=== PATIENT | male | born 1955 | race Caucasian/White ===

== ENCOUNTER → 2016-12-22 | Outpatient (CLI) | payer BC ==
[~2016-12-22] MED LIST: CHOL20007 PO; DICY10CA12 PO; IRON PO
--- NOTE | 2016-12-22 15:15 | DIAGNOSTIC IMAGING REPORT ---
RIGHT SHOULDER MIN 2 VIEWS CLINICAL HISTORY: Right shoulder pain. Rotator cuff tear. COMPARISON: None FINDINGS: Alignment of the right shoulder is in anatomic. There is no fracture or suspicious lesion. There is moderate AC joint arthrosis. There is mild glenohumeral joint arthrosis. IMPRESSION: 1. No acute fracture or dislocation of the right shoulder. 2. Moderate osteoarthritis of the right acromioclavicular joint and mild osteoarthritis of the right glenohumeral joint. Electronically signed by: Noah Phillips M.D. 12/22/2016 3:13 PM Dictated Date/Time: 12/22/2016 3:12 PM
== END | disposition home or self-care (01) ==
LOC: C.RDSM 14:47
PROVIDERS: ATTEND Physician Assistant
DX: M75.100 Unspecified rotator cuff tear or rupture of unspecified shoulder, not specified as traumatic (principal); M19.011 Primary osteoarthritis, right shoulder

== ENCOUNTER → 2017-01-16 | Day surgery (SDC) | payer BC ==
[2016-12-28 09:35] VITALS: Ht 165.1 cm; Wt 74.1 kg
[2017-01-08 15:34] LABS: BASO % 0.5 %; BASO ABS # 0.03 K/uL (0-0.2); COMPLETE YES; EOS % 1.4 %; HEMATOCRIT 43.2 % (42-52); IG% 0.5 %; LYMPH % 25.4 %; LYMPH ABS # 1.59 K/uL (1.2-3.4); MEAN CELL VOLUME 91.9 fL (80-100); MEAN CORPUSCULAR HEMOGLOBIN 30.4 pg (25-34); MEAN CORPUSCULAR HGB CONC 33.1 g/dl (32-36); MEAN PLATELET VOLUME 10.4 fL (7.4-10.4); NEUT % 65.2 %; PLATELET COUNT 271 K/uL (130-400); WHITE BLOOD COUNT 6.27 K/uL (4.8-10.8)
[2017-01-08 15:57] LABS: CALCIUM 9.3 mg/dl (8.5-10.1); CREATININE 0.82 mg/dl (0.60-1.40); POTASSIUM 4.1 mmol/L (3.5-5.1)
[~2017-01-16] VITALS: Ht 165.1 cm; Wt 74.1 kg
[~2017-01-16] MED LIST changes: +ATROPINE SULFATE 0.1 MG/ML 5ML SYR IV PRN; +BUPIVACAINE/EPINEPHRINE 0.5% MPF 1:200,000 30 ML VIAL ONE; +DEXAMETHASONE SOD INJ 4 MG/ML VIAL ONE; +EpHEDrine SULFATE 50MG/5ML SYR ONE; +EpHEDrine SULFATE INJ 50 MG/ML AMP IV PRN; +EpINEphrine INJ 1MG/ML AMP 1 MG/ML AMP ONE; +FENTANYL CITRATE INJ 50 MCG/1 ML 2 ML VIAL IV PRN; +FENTANYL CITRATE INJ 50 MCG/1 ML 2 ML VIAL ONE; +HYDROmorphone INJ 1 MG/ML SYR IV PRN; +LACTATED RINGER'S 1000ML 1,000 ML IV SCH; +LIDOCAINE HCL 2% 2 ML VIAL (20MG/ML) ONE; +MIDAZOLAM HCL 1 MG/ML 2ML VIAL ONE; +ONDANSETRON INJ 2 MG/ML 2 ML VIAL IV PRN; +ONDANSETRON INJ 2 MG/ML 2 ML VIAL ONE; +OXYCODONE/ACETAMINOPHEN 5-325 TAB PO PRN; +PROPOFOL IV EMULSION 10 MG/ML 20 ML VIAL IV ONE; +ROPIVACAINE 0.5% 5 MG/ML 30 ML VIAL ONE; +SODIUM CHLORIDE 0.9% 1000ML 1,000 ML IV SCH
[2017-01-16] MEDS: CLINDAMYCIN PHOS 150 MG/ML 2 ML VIAL IV SCH ×2 (09:03→09:52)
--- NOTE | 2017-01-16 09:15 | History & Physical Bridge Note ---
H&P Re-Evaluation Bridge Note: I have examined the patient, reviewed the History & Physical and in the interval since the performance of the History & Physical I have noted the following changes of clinical significance: No changes noted
--- NOTE | 2017-01-16 09:16 | Discharge Instructions ---
Discharge Instructions Date of Service January 16, 2017. Visit Reason for Visit: Right Shoulder Rotator Cuff Tear With Impingement Discharge Discharge Diagnosis / Problem: same Discharge Goals Goal(s): Decrease discomfort, Improve function Medications Stopped Medications Name(s): na Restart Stopped Medication(s): resume all scripts as directed Activity Recommendations Activity Limitations: as noted below Lifting Limitations: until after follow-up appointment Exercise/Sports Limitations: until after follow-up appointment May Resume Sexual Activity: when tolerated Shower/Bathe: keep incision dry Driving or Machine Use: Anesthesia . Post Anesthesia Instructions: If you have had General Anesthesia or IV Sedation: * Do not drive today. * Resume driving when surgeon permits. * Do not make important decisions or sign legal documents today. * Call surgeon for: 1. Temperature elevations greater than 101 degrees F. 2. Uncontrollable pain. 3. Excessive bleeding. 4. Persistent nausea and vomiting. 5. Medication intolerance (nausea, vomiting or rash). * For nausea and vomiting use only clear liquids such as: tea, soda, bouillon until nausea subsides, then gradually increase diet as tolerated. * If you have any concerns or questions, call your surgeon's office. If physician is unavailable and it is an emergency, call 911 or go to the nearest emergency room. . Instructions / Follow-Up Instructions / Follow-Up The following are instructions to follow after "Shoulder Surgery" including, Acromioplasty, Rotator Cuff Repair and Instability Surgery ACTIVITY RECOMMENDATIONS: * Minimize activity after surgery. * No excessive walking, jogging, sports or laboring. * Return to activity is individualized depending on the patient and type of surgery. * Driving is not permitted until at least your first post operative visit. Please ask your doctor when it is safe to resume driving. * Expect increased discomfort with increased activity. Continue to ice the shoulder as needed. SCHOOL/WORK RECOMMENDATIONS: * You may return to sedentary work or school when you are feeling more comfortable. This is usually 3-7 days after surgery. MEDICATIONS: * You will have a prescription for pain medication and an anti-inflammatory medication after surgery. * Use the pain medication for severe pain and the anti-inflammatory for less severe pain. Once the pain medication has run out, try to use the anti-inflammatory medication. If this is not effective, contact the office for assistance. * The pain medication may cause nausea, constipation and drowsiness. You should see how they affect you before driving or similar activity. * The anti-inflammatory medication may cause stomach upset and bleeding. If this occurs let your doctor know immediately . * Take a stool softener like Colace or a laxative like Senokot to prevent constipation. DIET: * Resume previous diet. SPECIAL CARE: ICE: You have the option of an ice cooler, gel packs or ice bags. * If you have an ice cooler, refer to the instructions for that device. The ice cooler may be used continuously. * If you do not have an ice cooler, you will need to use ice bags or gel packs. Do not apply ice directly to the skin. Use a thin dressing or radha shirt between the skin and ice bag. Apply ice for 20-30 minutes and repeat every 2-4 hours. This is especially important for the first 7-10 days after surgery. Once the pain improves, use ice as needed. ELEVATION: * You may be more comfortable sleeping in an upright position. Use the sling to elevate your arm. DRESSING: * Your dressing will be changed at your first therapy appointment approximately 4-5 days after surgery. Band-aids, tape strips or gauze may be applied. You may then change your dressing daily. * Reapply dressing followed by the EBIce cooling pad (if chosen) and then the sling. * Always wash your hands prior to touching the incision area. * Once the stitches are removed, you may leave the wound open to air or cover with gauze. * Expect some bloody drainage for the first few days after surgery. * Leave the tape strips, if present, in place for 5-7 days. * Band-aids and gauze may be changed daily. * There may be a gauze pad in your armpit area. This can be changed daily or replaced by a dry washcloth. SLING/BRACE: * You will need to use a sling or brace after surgery. The length of time the sling is used is dependent upon the type of surgery performed. * Arthroscopic Acromioplasty requires use of the sling for 2-4 weeks for comfort. * Labral procedures and Rotator Cuff Repairs require use of the sling for a longer period of time. Please check with your doctor prior to discontinuing the sling. BATHING: * You may shower or sponge-bathe immediately after surgery. The post operative shoulder dressing is mostly water-tight. You may shower right over this dressing, but be reasonably careful not to get the gauze or incision wet. * Once the dressing has been changed on the fourth or fifth day after surgery, you may shower and get the incision wet. * Wash with regular soap and water. * Do not bathe (submerge the incision), soak, swim or use a hot tub until the incision is completely healed over with normal skin and the doctor has given the OK to proceed. * There is no need to apply any ointments, powders or salves to your incision. * Do not apply alcohol or hydrogen peroxide directly to the incision. * Diluted peroxide (50:50 mixture with sterile saline) may be used to clean dried blood from around the incision area. THERAPY: * You will begin therapy four or five days after surgery. * Organized therapy with the therapist is important for the first 2-4 months after surgery depending on the type of procedure. During that time you will attend therapy 1-3 times per week. * You will also need to do daily exercises for range of motion and strength as instructed. * Patients who have a Capsular Shift Procedure will need to abide by temporary range of motion limitations. * Patients having Rotator Cuff Surgery are not allowed to actively lift their arms until 4-6 weeks after surgery. * Please check with your doctor regarding appropriate motion restrictions. FOLLOW UP VISIT: * If not already scheduled, please call the office at to schedule a follow-up appointment for 10 days after surgery and monthly thereafter. Diet Recommendations Recommended Home Diet: resume previous diet Procedures Procedures Performed: see op note Pending Studies Studies pending at discharge: no Medical Emergencies . Who to Call and When: Medical Emergencies: If at any time you feel your situation is an emergency, please call 911 immediately. . Non-Emergent Contact Non-Emergency issues call your: Specialist Call Non-Emergent contact if: temperature is above 101.5 . . "Provider Documentation" section prepared by Mike Powell. .
--- NOTE | 2017-01-16 11:15 | [facility] Post Operative Brief Note ---
Immediate Operative Summary Operative Date January 16, 2017. Pre-Operative Diagnosis Right Shoulder Rotator Cuff Tear with Impingement Post-Operative Diagnosis Same Procedure(s) Performed Right Shoulder Arthroscopic Rotator Cuff Repair, Subacromial Decompression, Distal Clavicle Excision, Biceps Tenotomy,JULIA Surgeon Dr. Powell Medical Assisting Instructor Surgeon(s) Viki Butler, Fellow; Misael Wasserman PA-C Estimated Blood Loss Trace Findings cuff tear/biceps tendonitis/adhesive capsulitis/impingement Fluids (cc crystalloids) 800cc Specimens None Drains none Anesthesia LMA/block Complication(s) None Disposition Recovery Room / PACU
--- NOTE | 2017-01-16 11:41 | OPERATIVE REPORT ---
DATE OF OPERATION: 01/16/2017 SURGEON: Dr. Powell. FINISHER SPECIAL STOCKS: Darrian PREOPERATIVE DIAGNOSES: Chronic impingement syndrome, biceps tendonopathy, rotator cuff disease with tear and acromioclavicular joint arthropathy. POSTOPERATIVE DIAGNOSIS: Same. OPERATION PERFORMED: 1. Exam under anesthesia. 2. Manipulation under anesthesia. 3. Diagnostic arthroscopy. 4. Arthroscopic subacromial decompression. 5. Arthroscopic excision, distal clavicle. 6. Arthroscopic biceps tenotomy. 7. Arthroscopic rotator cuff, a 1.5 cm tear, small. PERIOPERATIVE SITUATION: Medically cleared male with intractable shoulder pain. On exam under anesthesia revealed some adhesive capsulitis was manipulated and got full range of motion after some adhesions released. He was then sterilely placed in a beach chair position, the upper extremity prepped and draped in usual routine fashion. A posterior portal made 2 cm medial and posterior to inferolateral tip of the acromion. An anterior portal made just at the AC joint. Inspection of the shoulder revealed biceps adhesions to the capsule, this was released and the biceps tenotomy performed . There was a rotator cuff tear at the supraspinatus, approximately 1 cm to 1.5 cm. This was debrided. The joint had some minor articular disease. There was minor labral disease. Subacromial space was then entered, hook of the acromion was flattened, CA ligament resected and distal clavicle resected about 5 mm. Using accessory portals, there was a cannula placed and that was 3 portals total and then using the scorpion, 4 sutures were placed in the rotator cuff. Two anchors placed, 4.75 anchors along the debrided bed of the rotator cuff insertion and then the rotator cuff repaired with no difficulty. A good repair, good tension, good mobilization back down to the insertion site. The arm was then rotated, the cuff stayed in place. There were no issues. The procedure was then terminated. All instruments and fluid removed. The portals closed with 4-0 nylon, dressed with Xeroform, 4 x 4 gauze, ABD pads and Ioban dressing and a shoulder immobilizer was placed. ESTIMATED BLOOD LOSS: Trace. CRYSTALLOID: 800 mL. DVT prophylaxis none. I attest to the content of the Intraoperative Record and any orders documented therein. Any exceptions are noted below. MIRNA
--- NOTE | 2017-01-16 11:48 | OPERATIVE REPORT ---
PREOPERATIVE DIAGNOSIS: Right shoulder rotator cuff tear with impingement. POSTOPERATIVE DIAGNOSIS: Right shoulder same with biceps tendinopathy. PROCEDURE: Right shoulder arthroscopy, biceps tenotomy, manipulation under anesthesia, distal clavicle excision, subacromial decompression, and rotator cuff repair. SURGEON: Dr. Powell. WAFER FAB TECHNICIAN: Dr. Campbell. SECOND WAFER FAB TECHNICIAN: Deven Wasserman PA-C. HISTORY OF PRESENT ILLNESS: This 61-year-old white male presented to the office with complaints of right shoulder pain and loss of motion. He had tried conservative care measures without success. The patient elected to proceed with surgical intervention after being educated about potential risks and outcomes. Preoperative x-ray and MRI were obtained. OPERATION: The patient was administered regional block and then taken to the operating room where he was given general anesthetic. He was prepped and draped in the usual sterile fashion. Please see Dr. Powell's operative report for specifics of the procedure. I was present for the entire case from initial patient positioning through final wound closure. Assistance was provided in patient positioning, arthroscopy, hardware placement, and final wound closure. The patient was taken to the recovery room in satisfactory condition.
--- NOTE | 2017-01-16 12:04 | Anesthesia Progress Nt - [facility] ---
Anesthesia Post Op Note Date & Time January 16, 2017 at 12:05 Vital Signs Pain Intensity: 4 Vital Signs Past 12 Hours Date Time Temp Pulse Resp B/P Pulse Ox O2 Delivery O2 Flow Rate FiO2 01/16/17 11:57 Room Air 01/16/17 11:24 36.5 59 12 146/74 99 Diffusion Mask 6 01/16/17 10:10 100/69 01/16/17 10:09 55 99 01/16/17 10:09 54 01/16/17 10:06 108/89 01/16/17 10:04 59 12 98 01/16/17 10:04 62 01/16/17 10:00 126/78 01/16/17 09:59 63 01/16/17 09:59 63 11 99 01/16/17 09:56 115/72 01/16/17 09:54 52 0 94 01/16/17 09:54 53 01/16/17 09:49 57 01/16/17 09:49 61 0 94 01/16/17 08:56 36.6 62 16 110/70 95 Room Air Notes Mental Status: alert / awake / arousable, participated in evaluation Pt Amnestic to Procedure: Yes Nausea / Vomiting: adequately controlled Pain: adequately controlled Airway Patency, RR, SpO2: stable & adequate BP & HR: stable & adequate Hydration State: stable & adequate Anesthetic Complications: no major complications apparent Pt doing well.
[2017-01-16 12:14] VITALS: TEMP 36.3
[2017-01-16 12:43] VITALS: BP 103/64; PULSE 66; O2SAT 95
--- NOTE | 2017-01-18 15:25 | OPERATIVE REPORT ---
DATE OF OPERATION: 01/16/2017 ADDENDUM It should be noted that this procedure was performed on his right shoulder. I attest to the content of the Intraoperative Record and any orders documented therein. Any exceptio ns are noted below.
== END | disposition home or self-care (01) ==
LOC: X.SURG 08:23
PROVIDERS: ATTEND Physical Medicine & Rehabilitation Sports Medicine
DX: M25.811 Other specified joint disorders, right shoulder (principal); Z82.3 Family history of stroke; Z83.3 Family history of diabetes mellitus

== ENCOUNTER → 2017-03-05 | Outpatient (CLI) | payer BC ==
[~2017-03-05] MED LIST changes: -ATROPINE SULFATE 0.1 MG/ML 5ML SYR IV PRN; -BUPIVACAINE/EPINEPHRINE 0.5% MPF 1:200,000 30 ML VIAL ONE; -DEXAMETHASONE SOD INJ 4 MG/ML VIAL ONE; -EpHEDrine SULFATE 50MG/5ML SYR ONE; -EpHEDrine SULFATE INJ 50 MG/ML AMP IV PRN; -EpINEphrine INJ 1MG/ML AMP 1 MG/ML AMP ONE; -FENTANYL CITRATE INJ 50 MCG/1 ML 2 ML VIAL IV PRN; -FENTANYL CITRATE INJ 50 MCG/1 ML 2 ML VIAL ONE; -HYDROmorphone INJ 1 MG/ML SYR IV PRN; -LACTATED RINGER'S 1000ML 1,000 ML IV SCH; -LIDOCAINE HCL 2% 2 ML VIAL (20MG/ML) ONE; -MIDAZOLAM HCL 1 MG/ML 2ML VIAL ONE; -ONDANSETRON INJ 2 MG/ML 2 ML VIAL IV PRN; -ONDANSETRON INJ 2 MG/ML 2 ML VIAL ONE; -OXYCODONE/ACETAMINOPHEN 5-325 TAB PO PRN; -PROPOFOL IV EMULSION 10 MG/ML 20 ML VIAL IV ONE; -ROPIVACAINE 0.5% 5 MG/ML 30 ML VIAL ONE; -SODIUM CHLORIDE 0.9% 1000ML 1,000 ML IV SCH
== END | disposition home or self-care (01) ==
LOC: C.RDSM 10:45
PROVIDERS: ATTEND Physical Medicine & Rehabilitation Sports Medicine
DX: M75.121 Complete rotator cuff tear or rupture of right shoulder, not specified as traumatic (principal)